=== PATIENT | female | born 1990 | race Caucasian/White ===

== ENCOUNTER 2016-08-10 03:34 | Inpatient (IN) | payer OTHER ==
[~2016-08-10] VITALS: Ht 170.2 cm; Wt 78.0 kg
[2016-08-10] MEDS ORDERED: Lactated Ringer's 1,000 ML IV PRN (05:19)
[2016-08-10] MEDS ORDERED: Oxytocin 30 Units/500 mL LR 30 UNITS in IV Premix 1 EACH IV PRN ×2 (05:20→06:35)
[2016-08-10] MEDS ORDERED: Sodium Chloride LOK Flush 10 mL Syringe IVFLUSH PRN (05:20)
[2016-08-10] MEDS ORDERED: Hemorrhage Kit, Post Partum XX ONE ×2 (05:20→06:35)
[2016-08-10] MEDS ORDERED: Ondansetron 2 mg/mL 2 mL Inj IVPUSH PRN (05:20)
[2016-08-10] MEDS ORDERED: Methylergonovine 0.2 mg/mL Inj IM PRN ×2 (05:20→06:35)
[2016-08-10] MEDS ORDERED: Oxytocin 10 Unit/mL Inj IM PRN ×2 (05:20→06:35)
[2016-08-10] MEDS ORDERED: Carboprost 250 mCg/mL Inj IM PRN ×2 (05:20→06:35)
[2016-08-10] MEDS ORDERED: fentaNYL 2 mCg/mL-Bupivicaine 0.125% 100 mL Premix EPIDURAL ONE (05:24)
[2016-08-10 05:43] LABS: Mean Corpuscular Volume 94.1 fL (81-100)
[2016-08-10] MEDS ORDERED: Benzocaine (Dermoplast) 20% 60 Gm Spray TOPICAL PRN (06:35)
[2016-08-10] MEDS ORDERED: LANOlin HPA 7 Gm Ointment TOPICAL PRN (06:35)
[2016-08-10] MEDS ORDERED: Witch Hazel-Glycerin Pads TOPICAL PRN (06:35)
[2016-08-10] MEDS ORDERED: oxyCODONE-Acetamin 5-325 mg Tablet PO PRN (06:35)
[2016-08-10] MEDS: Lactated Ringer's 1,000 ML IV SCH ×2 (06:41→14:33)
[2016-08-10] MEDS: Ascorbic Acid 500 mg Tablet PO SCH ×2 (09:15→17:36)
--- NOTE | 2016-08-10 10:35 | HP ---
[address] [address] HISTORY AND PHYSICAL PATIENT: JEANE HERNANDEZ : 1990 MR#: [id number] ADMIT: 08/10/2016 JOB ID: [id number] CHIEF COMPLAINT: The patient is a 26-year-old, 2, para 1-0-0-1, at 39 weeks and 4 days gestational age by first trimester ultrasound, admitted from triage for active labor and spontaneous rupture of membranes. Had a precipitous labor with the nursing staff within 1 hour of admission. The cervix went from 3 cm to fully dilated, and I arrived after the baby was born. PAST OBSTETRICAL HISTORY: In 2014, a 39 week ended with spontaneous vaginal delivery with no complications. PAST GYNECOLOGIC HISTORY: No abnormal Pap smears. No history of STDs. PAST MEDICAL HISTORY: Dysthymia, on Zoloft. PAST SURGICAL HISTORY: None. ALLERGIES: No known drug allergies. MEDICATIONS: vitamins. SOCIAL HISTORY: Denied any alcohol consumption. Denied any drugs of abuse. Denied any cigarette smoking. This is complicated initially with IUGR at 10th percentile but follow up with MFM showed growth to be at 21st percentile. LABORATORIES: A-positive, antibody negative, rubella immune, varicella immune, RPR nonreactive. Urine cultures negative. Hepatitis B surface antigen negative. HIV nonreactive. GC and Chlamydia cultures negative. One hour GTT is 104, within normal limits. GBS culture is negative. OBJECTIVE: Maternal vital signs is 115/50 for blood pressure. Respirations are 18, pulse is 57, temperature of 35.8 degrees centigrade. Pulse ox of 99% on room air. PRECIPITOUS LABOR REPORT: After the baby was born with nursing staff, placenta was still undelivered. I delivered the placenta spontaneously. Upon inspection, it was noted to be intact with 3-vessel cord centrally inserted. Inspection of the perineum revealed a right labial laceration through the entire upper labia. Local analgesia acheived by injecting 5 cc of 1% lidocaine. The laceration was repaired in a continuous fashion with 4-0 Vicryl suture. Good hemostasis assured. Bimanual exam confirmed firm uterine fundus with some blood clots retrieved included in total EBL. The patient tolerated the procedure well. The sponge, needle, and instrument counts were correct x2. Mother and baby are recovering in a stable condition in the Labor and Delivery Room. Estimated Blood Loss: 200 CC. FINDINGS: Single viable female with APGARS=7/9, weight=pending. ASSESSMENT AND PLAN: The patient is a 26-year-old, 2, para 2, status post precipitous labor and delivery. 1. Mom and baby recovering in a stable condition in Labor and Delivery Room. 2. Good hemostasis. 3. Start care. NADINE
[2016-08-11 07:08] LABS: Mean Corpuscular Volume 96.3 fL (81-100)
[2016-08-11] MEDS: Ascorbic Acid 500 mg Tablet PO SCH (07:34)
--- NOTE | 2016-08-11 08:25 | PCM.DIMED ---
BoboShabbir M 08/11/16 0825: Discharge Instructions Date of Service Aug 11, 2016 Dates of Hospitalization Aug 10, 2016 at 5:05 am Discharge Diagnosis Discharge Diagnosis Labor at term. SROM Precipitous Labor Labial laceration Medication Instructions Vicodin 5/325 mg, take 1 tab q4-6h PO PRN for pain, #40 Colace 100 mg BID PO PRN for constipation #80 Ferrous sulfate 325 mg PO daily, #90 Vitamin C 500 mg PO daily, #90. Take with iron Ibuprofen 600mg, take 1 tab q8h PO PRN for pain #60 Diet No restrictions Activity Other (Pelvic rest for 6wks. Balance activity and rest a pain allows. ) Patient Instructions Continue your vitamin. Please take the iron and vitamin c together for your anemia. Do not take more pain medication (Vicodin) than is necessary -- less is better. Vicodin pills have Tylenol (acetaminophen) in them at 325mg per pill. Do not take Tylenol in addition to your pain medication but should take one or the other. Both iron and Vicodin can give you constipation so you have also been given a prescription for docusate to keep you regular. Be sure to follow up in 6 weeks at [facility]. Pelvic rest for 6 weeks (nothing per vagina including intercourse, tampons) If you have a fever greater than 100.4, please call [facility]. There is always someone production line worker to talk to. If you have an increase in bleeding, call [facility]. If you have a lot of bleeding suddenly, especially if you have symptoms of dizziness & weakness with it, get emergency help. When you see [facility] in two weeks, you will be informed of the results of all the labs. If you start experiencing extreme depression, especially if you feel that you are a danger to yourself or your family, seek emergency help. You have been through a lot -- BE SURE TO TAKE CARE OF YOURSELF. Follow-up plan 6wk [facility] Hayley Feldman MD 08/11/16 1112: Discharge Instructions Attending's Statement normal vaginal delivery PPD1 . Recovered well. Will discharge today I saw and examined patient. Shabbir Broussard DO Aug 11, 2016 08:25 Hayley Feldman MD Aug 11, 2016 11:12
[2016-08-11] MEDS ORDERED: IBUP-1827 PO (08:27)
[2016-08-11] MEDS ORDERED: DOCU-41 PO (08:27)
[2016-08-11] MEDS ORDERED: FERR-74 PO (08:27)
[2016-08-11] MEDS ORDERED: HYDR-4003 PO (08:27)
[2016-08-11] MEDS ORDERED: Ascorbic Acid PO (08:27)
--- NOTE | 2016-08-11 12:44 | PCM.DC.OB ---
Obstetrical Discharge Summary Date of Service Aug 11, 2016 Date of hospital admission Aug 10, 2016 at 5:05 am Date of Discharge: Aug 11, 2016 Providers Admitting Physician: Kody Lopez MD Primary Care Physician: Caroline Turner MD Attending Physician: Kody Lopez MD Diagnosis at Time of Discharge Term SROM Precipitous labor Bradycardia Problems: Brief History and Physical: The patient is a 26-year-old, 2, para 1-0-0-1, at 39 weeks and 4 days gestational age by first trimester ultrasound, admitted from triage for active labor and spontaneous rupture of membranes. Had a precipitous labor with the nursing staff within 1 hour of admission from 3cm to full. Physical Exam on Day of Discharge 113/54, 49 beats per minute, 18 respirations per minute, 36.9C General: Laying in bed, no apparent distress. HEENT: Normocephalic, atraumatic, EOMI grossly, Cardiovascular: Regular rate and rhythm, 2 out of 6 upstroke murmur was heard best at the upper sternal border. Pulmonary: Clear to auscultation bilaterally, no W/R/R. Abdominal: Soft to palpation, bowel sounds present 4, uterine fundus at level of umbilicus Extremities: No edema appreciated. No tenderness, asymmetry. Neuro: Neurologically grossly intact, strength is equal bilaterally upper and lower extremities. MSK: Gait is normal, able to move extremities on their own volition, strength 5 out of 5 equal bilaterally to upper and lower extremities. Hospital Course: As above, patient had precipitous delivery. course was uneventful, pain was under control with oral analgesics. On day of discharge patient was able to ambulate independently, was passing flatus, and was voiding without difficulty. On day 1, patient stated she was ready to go home. ([Ascorbic Acid]) 500 MG TABLET 500 MG PO BIDWM Prescribed by: SHABBIR FAITH DO Docusate Sodium (Colace) 100 Mg Capsule 100 MG PO BID Prescribed by: SHABBIR FAITH DO Ferrous Sulfate (Feosol) 325 Mg Tablet 325 MG PO BIDWM Prescribed by: SHABBIR FAITH DO Hydrocodone-Acetaminophen 5-325 mg (Hydrocodone-Acetaminophen 5-325 mg) 1 Each Tablet 1 TABLET PO Q4H PRN PRN For Pain Prescribed by: SHABBIR FAITH, Ibuprofen (Ibuprofen) 600 Mg Tablet 600 MG PO Q6H PRN PRN For Mild Pain Prescribed by: SHABBIR FAITH DO Discharge Medications: As above Disposition Home, with family. Follow-up plan [facility]up [facility] in 6 weeks Discharge Diet: No restrictions Discharge Activity-General: Pelvic Rest for 6 weeks, Pelvic Rest, Be up and about, Balance rest and activity, Activity as pain allows, Activity as energy allows, No lifting >15 pounds for 2 weeks Patient instructions Continue your vitamin. Please take the iron and vitamin c together for your anemia. Do not take more pain medication (Vicodin) than is necessary -- less is better. Vicodin pills have Tylenol (acetaminophen) in them at 325mg per pill. Do not take Tylenol in addition to your pain medication but should take one or the other. Both iron and Vicodin can give you constipation so you have also been given a prescription for docusate to keep you regular. Be sure to follow up in 6 weeks at [facility]. Pelvic rest for 6 weeks (nothing per vagina including intercourse, tampons) If you have a fever greater than 100.4, please call [facility]. There is always someone business risk consultant to talk to. If you have an increase in bleeding, call [facility]. If you have a lot of bleeding suddenly, especially if you have symptoms of dizziness & weakness with it, get emergency help. When you see [facility] in two weeks, you will be informed of the results of all the labs. If you start experiencing extreme depression, especially if you feel that you are a danger to yourself or your family, seek emergency help. You have been through a lot -- BE SURE TO TAKE CARE OF YOURSELF. Attending Statement: I saw patient and examined her. I agree with above evaluation and plan. Shabbir Broussard DO Aug 11, 2016 12:44 Hayley Feldman MD Aug 31, 2016 20:59
== END 2016-08-11 13:12 | disposition home or self-care (01) | DRG 775 ==
LOC: FBCO 03:34 → FBC 05:05
PROVIDERS: ADMIT Legal Medicine; ATTEND Obstetrics & Gynecology
PROC: 10E0XZZ Delivery of Products of Conception, External Approach (ICD-10-PCS; principal; 2016-08-10)
PROC: 0HQ9XZZ Repair Perineum Skin, External Approach (ICD-10-PCS; 2016-08-10)
DX: O62.3 Precipitate labor (principal); O70.0 First degree perineal laceration during delivery; Z3A.39 39 weeks gestation of pregnancy; Z37.0 Single live birth